=== PATIENT | female | born 1930 | race Caucasian/White ===

== ENCOUNTER 2019-08-31 06:13 | Day surgery (SDC) | payer MEDICARE, BC ==
[2019-08-31] MEDS ORDERED: Dextrose 5%-Lactated Ringers 1,000 ML IV SCH (07:00)
[2019-08-31] MEDS ORDERED: Propofol 200 MG/20 ML SDV ONE (07:20)
[2019-08-31] MEDS ORDERED: fentaNYL 100 MCG/2 ML SDV ONE (07:20)
[2019-08-31] MEDS ORDERED: Famotidine 20 MG/2 ML SDV IVPUSH ONE (08:36)
--- NOTE | 2019-09-04 21:31 | OR ---
DATE OF PROCEDURE: 08/31/2019 SURGEON: Zeyad Dozier MD PREOPERATIVE DIAGNOSES: 1. Laryngopharyngeal dysphagia. 2. Active gastroesophageal reflux disease. POSTOPERATIVE DIAGNOSES: 1. Laryngopharyngeal dysphagia with some reddening and edema of the hypopharynx and larynx. 2. Small hiatal hernia associated with marked gastroesophageal reflux disease. 3. Minimal antral gastritis. OPERATIVE PROCEDURES: Esophagogastroduodenoscopy with: 1. Biopsies of esophagogastric junction for histologic evaluation. 2. Biopsies of antrum for CLOtest. ANESTHESIA: IV sedation. INDICATION FOR PROCEDURE: This is an 89-year-old presenting with progressively worsening gastroesophageal reflux disease involved by the way of ongoing heartburn. She was started on Protonix, but did not tolerate that due to side effects and presently is not on any antisecretory medication. She also complains of quite a bit of laryngopharyngeal dysphagia, some of which may be related to reflux disease versus coordination issue. The plan was to proceed with upper GI endoscopy with biopsies as indicated. Potential risks including bleeding and perforation were discussed, and the patient wishes to proceed. DETAILS OF PROCEDURE: The patient was taken to the operating room and placed in a left lateral decubitus position. IV sedation was administered, after which the upper GI endoscope was passed orally through the length of the esophagus into the stomach with retroflexion view of the fundus, thereafter through the pyloric channel and into the junction of the 3rd and 4th portions of the duodenum. Findings included some redness and edema of hypopharynx and larynx, which is likely related to some ongoing reflux disease. The upper esophageal sphincter and the esophageal body were unremarkable. At the area of the EG junction, the patient was noted to have a 1 to 2 cm hiatal hernia and essentially wide-open esophagogastric junction with likely being at this time. This was associated with quite a bit of redness as well as a linear ulcer present extending upward into the esophagus roughly 3 cm above the esophagogastric junction. No plaquing or stricturing was evident. Within the stomach, there was some patchy redness in the antrum; otherwise, pyloric channel and visualized portions of the duodenum were unremarkable. At this point, biopsies were obtained from the antrum and sent for CLOtest for H pylori. Multiple biopsies were then obtained from esophagogastric junction, sent for histologic evaluation. No bleeding from the biopsy sites was seen and the procedure then concluded. The patient was taken to the recovery room in satisfactory condition. At this point, we will give Pepcid 40 mg IV in the recovery room, the patient had a course of Zantac 150 mg b.i.d. We will see her back next week in clinic to discuss treatment options. At that point, we will have some idea whether or not the H2 blockers are helpful with regard to her reflux symptoms. We will also obtain an x-ray swallow study with speech pathology evaluation as I suspect she may have some altered coordination of the swallowing mechanism, which would be evaluated by that study. Zeyad Dozier MD /[id number]
== END 2019-08-31 10:08 | disposition home or self-care (01) ==
LOC: JP.SDS 06:13
PROVIDERS: ATTEND Surgery
DX: K21.0 Gastro-esophageal reflux disease with esophagitis (principal); K44.9 Diaphragmatic hernia without obstruction or gangrene; K29.70 Gastritis, unspecified, without bleeding; I10 Essential (primary) hypertension; E78.5 Hyperlipidemia, unspecified
CPT/HCPCS: 87081; 88305; J2704; J3010; J3490; J7050; J7121

== ENCOUNTER 2019-09-17 05:14 | Inpatient (IN) | payer MEDICARE, BC ==
[2019-09-17] MEDS ORDERED: Acetaminophen 325 MG Tab PO ONE (05:45)
[2019-09-17] MEDS ORDERED: Dextrose 5%-Lactated Ringers 1,000 ML IV SCH ×2 (06:00→10:15)
[2019-09-17] MEDS ORDERED: Ondansetron 4 MG/2 ML SDV ONE (07:04)
[2019-09-17] MEDS ORDERED: Succinylcholine 200 MG/10 ML MDV ONE (07:04)
[2019-09-17] MEDS ORDERED: Neostigmine Methylsulfate 1 MG/ML 5 ML Syringe ONE (07:04)
[2019-09-17] MEDS ORDERED: fentaNYL 250 MCG/5 ML SDV ONE (07:04)
[2019-09-17] MEDS ORDERED: Propofol 200 MG/20 ML SDV ONE (07:04)
[2019-09-17] MEDS ORDERED: Dexamethasone 4 MG/ML SDV ONE (07:04)
[2019-09-17] MEDS ORDERED: Rocuronium 50 MG/5 ML Vial ONE (07:04)
[2019-09-17] MEDS ORDERED: Glycopyrrolate 0.2 MG/ML 5 ML MDV ONE (07:04)
[2019-09-17] MEDS ORDERED: ceFAZolin 1 GM in Premix Bag 1 BAG IV ONE ×2 (07:10→07:30)
[2019-09-17] MEDS ORDERED: Labetalol 20 MG/4 ML Syringe ONE (08:05)
[2019-09-17] MEDS ORDERED: Sugammadex Sodium 200 MG/2 ML VIAL ONE (08:25)
[2019-09-17] MEDS ORDERED: hydrOXYzine HCL 100 MG/2 ML SDV IM PRN (10:08)
[2019-09-17] MEDS ORDERED: HYDROmorphone 0.5 MG/0.5 ML Syringe IVPUSH PRN (10:08)
[2019-09-17] MEDS ORDERED: Ondansetron 4 MG/2 ML SDV IVPUSH PRN (10:09)
[2019-09-17] MEDS: ceFAZolin 1 GM in Premix Bag 1 BAG IV SCH (16:19)
[2019-09-17] MEDS: Acetaminophen 325 MG Tab PO SCH ×2 (16:20→22:39)
[2019-09-17] MEDS: Metoclopramide 10 MG/2 ML SDV IVPUSH SCH ×2 (16:20→22:39)
[2019-09-17] MEDS: Famotidine 20 MG/2 ML SDV IV SCH (17:41)
[2019-09-17] MEDS: Docusate Sodium 100 MG Cap PO SCH (22:37)
[2019-09-17] MEDS: Verapamil 180 MG Tab.ER PO SCH (22:39)
[2019-09-18] MEDS: ceFAZolin 1 GM in Premix Bag 1 BAG IV SCH ×2 (00:19→08:33)
[2019-09-18] MEDS: Acetaminophen 325 MG Tab PO SCH ×4 (04:37→21:24)
[2019-09-18] MEDS: Metoclopramide 10 MG/2 ML SDV IVPUSH SCH ×2 (04:37→10:36)
[2019-09-18] MEDS: Famotidine 20 MG/2 ML SDV IV SCH (05:13)
[2019-09-18] MEDS ORDERED: Ondansetron 4 MG Tab.DIS PO PRN (07:29)
[2019-09-18] MEDS ORDERED: HYDROmorphone 2 MG Tab PO PRN (07:29)
[2019-09-18] MEDS ORDERED: Dextrose 5%-Lactated Ringers 1,000 ML IV SCH (07:30)
[2019-09-18] MEDS: Docusate Sodium 100 MG Cap PO SCH ×2 (09:14→21:23)
[2019-09-18] MEDS: Hydrochlorothiazide 25 MG Tab PO SCH (09:14)
[2019-09-18] MEDS: Aspirin 81 MG Tab.EC PO SCH (09:15)
--- NOTE | 2019-09-18 09:21 | PN ---
DATE OF SERVICE: 09/18/2019 SUBJECTIVE: Toshia is postoperative day #1. She has had some difficulty swallowing pills due to her diagnosis of laryngeal pharyngeal dysphagia. Vital signs have been stable. Pain has been controlled. She has been up ambulating. Has 440 mL in orally and urine is 1200 mL, and she has voided 5 times without being able to have it measured. REVIEW OF SYSTEMS: Remainder of review of systems negative for any pertinent positives and negatives. OBJECTIVE: GENERAL: Toshia Freitas is a pleasant 89-year-old female. She is alert, orientated. VITAL SIGNS: TPR 98.4, 74, 16, blood pressure 120/37. HEENT: Negative. NECK: Supple. HEART: Regular rate and rhythm. LUNGS: Clear. ABDOMEN: Dressings dry and intact. Abdominal binder is on. EXTREMITIES: Without peripheral edema. ASSESSMENT: Laparoscopic Monica fundoplication with repair of paraesophageal hernia with mesh and excision of mediastinal lipoma for paraesophageal diaphragmatic hernia with gastroesophageal reflux disease for gastroesophageal reflux disease refractory to medical management and mediastinal lipoma. Date of surgery: 09/17/2019. Surgeon: Zeyad Dozier MD. PLAN: 1. To follow orders of speech pathologist in regard to swallowing techniques. 2. Dressing off, may shower. 3. Full liquid diet. 4. Decrease rate of D5LR to 100 mL per hour. Dilaudid 2 mg every 4 p.r.n. pain, discontinue IV Dilaudid. Zofran 4 mg every 4 hours p.r.n. nausea, vomiting. 5. Good pulmonary function encouraged. 6. We will evaluate p.r.n. or in a.m. Lisa Remy PA-C /[id number]
[2019-09-18] MEDS: Metoclopramide 10 MG Tab PO SCH ×2 (16:47→22:11)
[2019-09-18] MEDS: Verapamil 180 MG Tab.ER PO SCH (21:23)
[2019-09-18] MEDS: Famotidine 20 MG Tab PO SCH (21:24)
[2019-09-19] MEDS: Acetaminophen 325 MG Tab PO SCH ×2 (04:28→11:06)
[2019-09-19] MEDS: Metoclopramide 10 MG Tab PO SCH ×2 (04:28→11:06)
[2019-09-19] MEDS: Famotidine 20 MG Tab PO SCH (08:38)
[2019-09-19] MEDS: Docusate Sodium 100 MG Cap PO SCH (08:39)
[2019-09-19] MEDS: Hydrochlorothiazide 25 MG Tab PO SCH (08:39)
[2019-09-19] MEDS: Aspirin 81 MG Tab.EC PO SCH (08:39)
--- NOTE | 2019-09-19 11:34 | DISCH ---
ADMISSION DIAGNOSES: 1. Paraesophageal diaphragmatic hernia. 2. Gastroesophageal reflux disease refractory to medical management. 3. Hypertension. 4. Bilateral carotid artery disease. 5. Osteoporosis. 6. Pure hypercholesterolemia, "treatment agreement chronic.". DISCHARGE DIAGNOSES: Laparoscopic Monica fundoplication with repair of paraesophageal hernia with mesh and excision of mediastinal lipoma for paraesophageal diaphragmatic hernia with gastroesophageal reflux disease for gastroesophageal reflux disease refractory to medical management and mediastinal lipoma. Date of surgery: 09/17/2019. Surgeon: Zeyad Dozier MD. HISTORY: Toshia Freitas is an 89-year-old female with longstanding history of gastroesophageal reflux disease refractory to medical management. After preoperative evaluation and discussion of possible risks and possible complications, she wished to proceed with surgical procedure. HOSPITAL COURSE: Toshia had her surgery on 09/17/2019. She had no operative complications. On postoperative day #1, she was started on a full liquid diet. Her pain was well managed. Dressings were removed and she did shower. She received dietary instruction. On postoperative day #2, she requested to be discharged to home. She was up, ambulating, independent, and was well educated in her full liquid diet. PHYSICAL EXAMINATION: GENERAL: Toshia Freitas is 89-year-old female. VITAL SIGNS: Height is 5 feet, weight is 117 pounds, BMI is 22.9. TPR is 97.8, 66, 16, blood pressure 142/67. HEENT: Negative. NECK: Supple. HEART: Regular rate and rhythm. LUNGS: Clear. ABDOMEN: Incisions look good. Abdominal binder is on. EXTREMITIES: Without peripheral edema. DISPOSITION: Discharged to home. CONDITION: Stable and improving. The patient does decline needing home health care. FOLLOWUP APPOINTMENT: Zeyad Dozier MD, at [facility] on 09/26/2019 at 9:00 a.m. HOME MEDICATIONS: Tylenol 650 mg q.6 hours p.r.n. pain. She is to resume her home medication of aspirin 81 mg daily, calcium with vitamin D soft chewable 1 daily, Colace 100 mg oral daily, multivitamin 1 tablet daily, Zocor 40 mg at bedtime, verapamil 180 mg oral daily, hydrochlorothiazide 25 mg oral daily, and Zantac 150 mg oral daily. DIET: Full liquid diet for 2 weeks. ACTIVITY: No lifting over 10 pounds for 2 weeks. Driving: Do not drive for 1 week. Shower/bathing: May shower. DISCHARGE INSTRUCTIONS: Notify provider if any fever, increased pain, nausea, or vomiting. Wound incision care; keep site clean and dry. Wear abdominal binder for 2 weeks and then as tolerated. SPECIAL INSTRUCTIONS: Use incentive spirometer 10 times every hour while awake for 2 weeks.
--- NOTE | 2019-09-20 08:09 | OR ---
DATE OF PROCEDURE: 09/17/2019 SURGEON: Zeyad Dozier MD PREOPERATIVE DIAGNOSIS: Gastroesophageal reflux disease refractory to medical management. POSTOPERATIVE DIAGNOSES: 1. Paraesophageal diaphragmatic hernia with gastroesophageal reflux disease refractory to medical management. 2. Mediastinal lipoma. OPERATIVE PROCEDURES: Diagnostic laparoscopy with: 1. Laparoscopic Monica fundoplication with concurrent repair of paraesophageal diaphragmatic hernia with mesh (81033). 2. Excision of mediastinal lipoma (60266). ANESTHESIA: General. ACCOUNTING SOFTWARE SPECIALIST: Lisa Remy PA-C INDICATIONS FOR PROCEDURE: This is an 89-year-old female presenting with worsening gastroesophageal reflux disease associated with quite a bit of episodes of aspiration and severe coughing. The plan is to proceed with a Monica fundoplication. Potential risks of the procedure including bleeding, infection, injury to underlying viscera, problems with fundoplication such as dysphagia, gas bloat syndrome, disorders of gastric emptying rate, as well as possible incomplete relief of reflux symptoms were gone over. The patient also on examination by speech pathology having some laryngopharyngeal dysphagia referable to some dysfunctional swallowing mechanism and she is aware that some of this may be coughing and certainly would not be controlled by the fundoplication, but clinically it does appear that the patient is likely having some significant complications from her reflux which would make this fundoplication beneficial. DETAILS OF PROCEDURE: The patient was taken to the operating room, placed in a supine position. After general endotracheal anesthesia was induced, she was converted to a lithotomy position and the abdomen prepped and draped. 15 cm inferior and 5 cm left of the xiphoid process, a transverse incision was made and the peritoneal cavity entered under direct vision with an Optiview trocar inflated to 15 mmHg pressure with CO2. Laparoscope was then reinserted. No underlying trocar insertion site injuries were seen. Following this, 4 additional trocars were placed across the upper and mid abdomen, and bilateral transversus abdominis plane blocks were placed. The liver was then retracted anteriorly. The patient was noted to have a fairly large diaphragmatic hernia. This included significant paraesophageal component with some omentum and perigastric fat prolapsing along the course of the esophagus. This area was then reduced and the peritoneum overlying the distal esophagus incised at the edge of the diaphragmatic defect and reflected downward. The crura were then identified and from the esophagus on each side and the retrocrural window constructed. Care was taken to avoid injury to the vagus nerves during the course of this dissection, and as the attachments to the esophagus were gradually divided, a 4 to 5 cm length of intraabdominal esophagus was established. During the course of dissection, a mediastinal lipoma was identified. This was excised and sent as a separate specimen. The crural repair was then accomplished posteriorly with some 0 Ethibond sutures reinforced with PTFE pledgets. Due to the fairly thin nature of the diaphragmatic musculature, a Phasix ST mesh was then selected. This was cut in horseshoe shape to fit behind the esophagus and over the crural repair and then slightly along the sides of the esophagus. This was affixed to the diaphragm on each side adjacent to the esophagus with titanium tacking screws. The mesh at that point appeared to be well positioned and well fixed. The greater curvature was then divided away from the proximal gastric greater curvature with Harmonic scalpel and then dissection continued up to and through the angle of His with division of the short gastric vessels including the posterior and highest short gastric vessels. This resulted in a very nice mobile fundus. The latter was retrieved through the retroesophageal window. Guidewire was then passed per Anesthesia orally down through the esophagus into the stomach. Over this, a 54-Nepali Savary dilator was positioned. A 3- stitch 2 cm fundoplication was then accomplished with 0 Ethibond sutures reinforced with PTFE pledgets. Each of the sutures included bites of the underlying esophagus and then 2 sutures were then placed between the upper aspect of the fundoplication and the overlying diaphragm with the same stitch-pledget combination to help maintain the fundoplication in a non-slip position. At this point, the dilator and wire were removed and fundoplication was inspected and found to be satisfactorily floppy. At that point, no further problems were noted. Trocars were removed and peritoneal cavity deflated. The fascia at the 12 mm site was closed with 0 Vicryl stitch and the skin with 4-0 Vicryl skin stitch. Dressing was applied. The patient was taken to the recovery room in satisfactory condition. Physician talent assistant, Lisa Remy, played an essential role in assisting in this case, helping to position the patient, retract structures as needed, as well as suturing and cutting sutures when indicated. Her presence improved patient safety and decreased the operative time. Zeyad Dozier MD /[id number]
== END 2019-09-19 11:07 | disposition home or self-care (01) | DRG 328 ==
LOC: JP.SDS 05:14 → JP.MS 05:14 → EDSTATUS 08:15 → JP.MS 09:00
PROVIDERS: ADMIT Surgery; ATTEND Surgery
PROC: 0DV44ZZ Restriction of Esophagogastric Junction, Percutaneous Endoscopic Approach (ICD-10-PCS; principal; 2019-09-17)
PROC: 0BUT4JZ Supplement Diaphragm with Synthetic Substitute, Percutaneous Endoscopic Approach (ICD-10-PCS; 2019-09-17)
PROC: 0WBC4ZZ Excision of Mediastinum, Percutaneous Endoscopic Approach (ICD-10-PCS; 2019-09-17)
DX: K21.9 Gastro-esophageal reflux disease without esophagitis (principal); K44.9 Diaphragmatic hernia without obstruction or gangrene; I10 Essential (primary) hypertension; M81.0 Age-related osteoporosis without current pathological fracture; E78.00 Pure hypercholesterolemia, unspecified; D17.4 Benign lipomatous neoplasm of intrathoracic organs; I65.23 Occlusion and stenosis of bilateral carotid arteries; M19.90 Unspecified osteoarthritis, unspecified site; R13.13 Dysphagia, pharyngeal phase; Z98.1 Arthrodesis status; Z98.890 Other specified postprocedural states; Z79.891 Long term (current) use of opiate analgesic; Z90.89 Acquired absence of other organs; Z90.710 Acquired absence of both cervix and uterus; Z91.030 Bee allergy status; Z88.0 Allergy status to penicillin; Z88.1 Allergy status to other antibiotic agents; Z79.82 Long term (current) use of aspirin; Z79.899 Other long term (current) drug therapy; Z88.8 Allergy status to other drugs, medicaments and biological substances
CPT/HCPCS: 88304; 94762; A9270-GY; C1713; C1781; J0171; J0330; J0690; J1100; J2405; J2704; J2710; J2765; J2795; J3010; J3490; J7050; J7121